=== PATIENT | male | born 1975 ===

== ENCOUNTER 2019-06-18 23:07 | Emergency (ER) | payer OTHER, SELFPAY ==
[2019-06-19] MEDS ORDERED: Ketorolac Tromethamine 30 MG/ML VIAL ONE (02:10)
== END 2019-06-19 02:40 | disposition home or self-care (01) ==
LOC: ERS 23:07
DX: S39.012A Strain of muscle, fascia and tendon of lower back, initial encounter (principal); F17.210 Nicotine dependence, cigarettes, uncomplicated; Z71.6 Tobacco abuse counseling; V49.9XXA Car occupant (driver) (passenger) injured in unspecified traffic accident, initial encounter
CPT/HCPCS: 96372; 99406; J1885